=== PATIENT | female | born 1945 | race Caucasian/White ===

== ENCOUNTER → 2022-10-07 08:29 | Outpatient (BNVA) | payer MEDICARE, SELFPAY | PROVIDERS: PCP Internal Medicine; Visit Provider Psychiatry & Neurology Neurology | DX: H53.9 Unspecified visual disturbance (principal); R47.9 Unspecified speech disturbances; G47.33 Obstructive sleep apnea (adult) (pediatric); Z99.89 Dependence on other enabling machines and devices | CPT/HCPCS: 99202 ==

== ENCOUNTER → 2023-11-15 15:46 | Outpatient (REF) | payer MEDICARE, SELFPAY ==
--- NOTE | 2023-11-15 15:51 | CA_ITS ---
Transthoracic Echocardiogram Patient (Last, First, Middle): Charmaine Aviles A Gender: Female Date of : 1945 Age: 78 Procedure Date: 11/15/2023 Procedure Type: Transthoracic Echocardiogram Location: OP Height: 152.4 cm Weight: 96.16 kg BSA: 1.91 m2 Heart Rate: bpm BP: 132 / 80 mmHg Cone Winder: Referring MD: Sonja Vazquez MD Symptoms: I50.30 CHF Study Quality: Adequate w Contrast ECG Rhythm: Sinus, LBBB Conclusions: - The left ventricular systolic function is normal. The calculated ejection fraction is 62% by biplane method. - No obvious valvular pathology seen on this study. Findings Procedure Information Contrast agent, definity, is being given per protocol without apparent complications. Left Ventricle Normal left ventricular cavity size. There is mildly increased left ventricular wall thickness. The left ventricular systolic function is normal. The calculated ejection fraction is 62% by biplane method. There is no evidence of regional wall motion abnormalities. Evidence suggests grade I (mild) diastolic dysfunction. Right Ventricle Normal right ventricular cavity size and systolic function. Atria Both atria are normal in size. Aortic Valve There is a normal trileaflet aortic valve. There is no aortic valve stenosis. There is no aortic valve regurgitation. Mitral Valve The mitral valve appears normal. There is no mitral valve regurgitation. There is no mitral valve stenosis. Pulmonic Valve The pulmonic valve is likely normal. Tricuspid Valve Normal tricuspid valve structure. There is trace tricuspid valve regurgitation. There is no evidence of pulmonary hypertension. Great Vessels The asc aorta is normal in size. Venous The inferior vena cava is normal in size and collapses greater than 50% with inspiration. Pericardium/Pleural There is no evidence of pericardial effusion. Prior Study Comparison No significant change compared to prior study dated: 11/30/2007. Recommendations, Care & Conclusions No obvious valvular pathology seen on this study. Measurements 2D Linear Measurements IVSd: 1.04 0.6-0.9/0.6-1.0 cm LVIDd: 4.37 3.9-5.3/4.2-5.9 cm LVIDd Index: 2.29 2.4-3.2/2.2-3.1 cm/m2 LVIDs: 2.66 2.0-3.6 cm LVPWd: 1.08 0.7-1.1 cm Ao Root: 2.80 2.1-3.5 cm LA Diam: 3.30 2.7-3.8/3.0-4.0 cm LAIDs Index: 1.73 1.5-2.3 cm/m2 LV Mass: 197.50 67-162/88-224 g LV Mass Index: 103.40 43-95/49-115 g/m2 LVOT Diam: 1.90 3.0+(-)1.3 cm 2D Systolic Function EF 4C: 66.80 >55% EF 2C: 56.90 >55% EF BiP: 62.30 >55% Mitral Valve MV Pk E: 0.95 MV PK A: 1.15 MV Decel Time: 301.00 E/A: 0.80 E'Lateral: 4.24 E'Medial: 5.44 E/E' Med: 17.50 E/E' Lat: 22.40 PHT: 88.00 MVA PHT: 2.50 Decel Brooks: 3.16 Aortic Valve AoV Pk Dash: 1.95 AoV Mn Dash: 1.15 AoV VTI: 0.42 AoV Pk Grad: 15.00 Aov Mn Grad: 7.00 PORTIA Cont.VTI: 1.55 LVOT LVOT Pk Dash: 0.88 LVOT Mn Dash: 0.61 LVOT VTI: 0.23 LVOT Pk Grad: 3.00 LVOT Mn Grad: 2.00 LVOT Diam: 1.90 LVOT Area: 2.84 Diastolic Function MV Pk E: 0.95 MV Pk A: 1.15 E/A: 0.80 E'Medial: 5.44 E/E' Med: 17.50 E' Laterial: 4.24 E/E' Lat: 22.40 Right Ventricle TAPSE (mm): 19.00 TVS' Dash: 10.00 Tricuspid Valve TR Pk Dash: 1.69 TR Pk Grad: 11.00 RA Press: 3.00 RVSP: 14.00 Great Vessels Aorta Ao Root-2D: 2.80 2.0-3.7 cm Ao Asc: 3.30 2.1-3.4 cm Pulmonary Valve PV Pk Dash: 1.18 Peak PV Grad: 6.00 Updated in Other Vendor System with Status of Final Jose Patel MD electronically signed on 11/16/2023 12:04:43 PM with status of Final
== END ==
LOC: HO.CARD 15:46
PROVIDERS: PCP Internal Medicine; Visit Provider Family Medicine
DX: I50.30 Unspecified diastolic (congestive) heart failure (principal)
CPT/HCPCS: 93306; Q9957

== ENCOUNTER → 2023-11-15 15:51 | Outpatient (BNV) | payer MEDICARE, SELFPAY | PROVIDERS: PCP Internal Medicine; Visit Provider Internal Medicine | DX: I44.7 Left bundle-branch block, unspecified (principal) | CPT/HCPCS: 93306 ==